=== PATIENT | female | born 1995 | race Caucasian/White ===

== ENCOUNTER 2020-08-03 04:13 | Inpatient (IN) ==
[2020-08-03] MEDS ORDERED: OXYTOCIN 30 UNITS/500 ML BAG IV PRN ×2 (04:31→09:13)
[2020-08-03] MEDS: LACTATED RINGER'S 1,000 ML IV PRN ×3 (04:38→08:23)
--- NOTE | 2020-08-03 04:40 | History & Physical Report ---
Date of Service August 03, 2020 Assessment & Plan (1) Normal labor: Admission and Anticipated Discharge Date Admission Date: IUP at 37+ weeks in active labor with SPROM COVID testing on admission requesting epidural analgesia anticipate vaginal History of Present Illness Primary Care Provider: MARCELLUS Schwartz Patient is a 25 yo white female EDC 08/18/20 who presents at 37+ weeks with SPROM at 0200 tonight. SHe has also had some bloody show & irregular contractions. She woke up with episodes of nausea vomiting & diarrhea along with the contractions. GBS -negative No COVID testing yet. otherwise has been uncomplicated Allergies Allergy/AdvReac Type Severity Reaction Status Date / Time No Known Allergies Allergy Verified 07/29/20 08:26 Home Medications Medication Instructions Recorded Confirmed Type prenat.vits,danielito,[id number] 1 tab PO DAILY 01/13/20 07/29/20 History ondansetron HCl 4 mg tablet 4 mg PO Q4H PRN #20 tab 04/28/20 07/29/20 Rx Patient History Medical History Asthma Encounter for anatomic survey History of chicken pox Marginal placenta previa Nausea and vomiting during Surgical History S/P wisdom tooth extraction Family History Mother Depression Sister Depression Father Hypertension Kidney stones Cancer Grandmother Breast cancer Social History Smoking Status: Never smoker Second Hand Exposure: No; Hx Alcohol Use: Yes Alcohol type Comment: rarely consumes Hx Substance Use: No Preferred Language: Yakut Communication Ability: Effective Visual Impairment: No Limitations Hearing Ability: Normal Beliefs That Will Affect Care: None marital status: Single marital status details: jean Jorgensen (32) [phone] Current Living Situation: Significant Other Current Living Situation Comment: Lives with jean, 2 dogs, cows, barn cat current occupational status: employed 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[employer] Feels Safe at Home: Yes Childhood Exposure to Second-Hand Smoke: No caffeine: No during the past year weight has: remained stable Dental Care, Regularly: Yes Physical Activity Frequency: 1-2 Times per Week Seatbelt Use: always Sunscreen Use: Yes Review of Systems All systems reviewed & are unremarkable except as noted in HPI & below Physical Exam Constitutional: WD/WN, vitals as above Respiratory: normal respiratory effort, lungs clear to auscultation Cardiovascular: RRR, no murmur, no edema Gastrointestinal (Abdomen): normal bowel sounds, soft, nontender, no hepatosplenomegaly Psychiatric: A+Ox3, euthymic affect Genitourinary: Manual OB Exam: + cervical dilation 5 cm, + cervical effacement 100%, + station -1 and + amniotic fluid clear and nitrazine positive OB Exam Monitor Tracing: + external FHT monitor used, + external uterine monitor used, + category I and + normal FHT variability Coding Level of Care Code None Diagnoses Normal labor O80; Z37.9
[2020-08-03] MEDS ORDERED: BUPIVACAINE 0.25% 30 ML VIAL ONE (04:46)
[2020-08-03] MEDS ORDERED: ePHEDrine sulfate 50 MG/ML AMP ONE (04:46)
[2020-08-03] MEDS ORDERED: SODIUM CHLORIDE 0.9% INJ 10 ML VIAL ONE (04:46)
[2020-08-03] MEDS ORDERED: fentaNYL citrate 100 MCG/2 ML VIAL ONE (04:47)
[2020-08-03] MEDS ORDERED: fentaNYL 2MCG/ML ROPIVACAINE 1.25MG/ML 100 ML BAG EPI ONE (04:47)
[2020-08-03 05:04] LABS: Hematocrit (blood only) 34.8 % (37-47); Hemoglobin 11.9 g/dL (12.0-16.0); Mean Corpuscular Hemoglobin 31.6 pg (25-34); Mean Corpuscular Hgb Conc 34.2 g/dL (32-36); Mean Corpuscular Volume 92.3 fL (80-100); Mean Platelet Volume 11.8 fL (7.4-10.4); Platelet Count 141 K/uL (130-400); RDW Coefficient of Variation 12.7 % (11.5-14.5); RDW Standard Deviation 42.4 fL (36.4-46.3); Red Blood Count 3.77 M/uL (4.2-5.4); White Blood Count 8.46 K/uL (4.8-10.8)
[2020-08-03] MEDS ORDERED: diphenhydrAMINE 50 MG/ML VIAL IV PRN (05:45)
[2020-08-03] MEDS ORDERED: NALOXONE HCL 0.4 MG/1 ML VIAL/CARP IV PRN (05:45)
[2020-08-03] MEDS ORDERED: fentaNYL 2MCG/ML ROPIVACAINE 1.25MG/ML 100 ML BAG EPI PRN (05:45)
[2020-08-03] MEDS ORDERED: NALOXONE HCL 1 MG in SODIUM CHLORIDE 0.9% 1000ML 1,000 ML IV PRN (05:45)
[2020-08-03] MEDS ORDERED: ePHEDrine sulfate 50 MG/ML AMP IV PRN (05:45)
[2020-08-03] MEDS ORDERED: ONDANSETRON INJ 2 MG/ML 2 ML VIAL IV PRN (05:45)
--- NOTE | 2020-08-03 05:48 | Anesthesiology Consultation ---
Date of Service August 03, 2020 Covid 19 negative on 08/03/20. Assessment & Plan (1) Encounter for pre-operative examination: Chart Review Chart Review: Patient NOT seen in Pre Admission Testing and Acceptable Risk for Labor Epidural Consults Requested none ASA ASA2 Proposed Anesthesia Anesthesia Type: Labor Epidural and CSE Risk / Benefits Reviewed With: PT / POA / Parent / Guardian, Accepts Plan and Informed Consent Obtained History Height/Weight Height: 5 ft 10 in Weight: 84.368 kg Allergies Allergy/AdvReac Type Severity Reaction Status Date / Time No Known Allergies Allergy Verified 07/29/20 08:26 Medications Home Medications Medication Instructions Recorded Confirmed Last Taken prenat.vits,danielito,[id number] 1 tab PO DAILY 01/13/20 07/29/20 Unknown ondansetron HCl 4 mg tablet 4 mg PO Q4H PRN #20 tab 04/28/20 07/29/20 Unknown Active Medications Generic Name Dose Route Start Last Admin Trade Name Freq PRN Reason Stop Dose Admin Lactated Ringer's 1,000 mls @ 125 mls/hr 08/03/20 04:31 08/03/20 05:46 Lr IV 08/05/20 04:30 999 mls/hr .Q8H PRN Administration L&D Protocol Protocol NPO Date Last Intake of Fluids: 08/02/20 Time Last Intake of Fluids: 19:00 Date Last Intake of Solids: 08/02/20 Time Last Intake of Solids: 19:00 Past Medical History Medical History Asthma Encounter for anatomic survey History of chicken pox Marginal placenta previa Nausea and vomiting during Exercise / Class Metabolic Activity II 4-5 Yardwork/Stairs/Walk up hill Past Family History Family History Mother Depression Sister Depression Father Hypertension Kidney stones Cancer Grandmother Breast cancer Past Surgical History Surgical History S/P wisdom tooth extraction Past Anesthesia History No Hx of Anesthesia Complications and No Family Hx of Anesthesia Complications History of PONV No Hx of PONV and No Hx of Motion Sickness Social History Smoking Status: Never smoker Do You Dip or Chew Tobacco: No Hx Alcohol Use: No Hx Substance Use: No substance use type: does not use Review of Systems no chest pain or sob Physical Exam Vital Signs Last Vital Signs Temp 36.7 C 08/03/20 04:47 Pulse 79 08/03/20 05:45 Resp 22 08/03/20 04:47 BP 146/82 H 08/03/20 05:28 Pulse Ox 99 08/03/20 05:45 ENMT Mouth: no TMJ abnormality Thyromental Distance: > or= 3.5 Finger Breadths Mallampati Class: II Neck normal visual inspection Respiratory normal respiratory effort Auscultation: lungs clear to auscultation bilaterally Cardiovascular Rate/Rhythm: regular rate and regular rhythm Musculoskeletal Spine: normal cervical ROM Neurologic moves all extremities Psychiatric Orientation: alert and oriented x 3 Testing Laboratory Results 08/03/20 04:53
--- NOTE | 2020-08-03 09:00 | Delivery Summary ---
Vaginal Delivery Summary Date of Service August 03, 2020 Vaginal Delivery Summary Spontaneous vaginal delivery patient had ruptured membranes and presented for Dr. Chan the night before in active labor received an epidural group B strep - 38 weeks Covid negative she pushed for less than half an hour delivering a baby in occiput anterior position fluid was clear no nuchal cord gentle traction no excessive force live vigorous male cord clamped and cut cord gases obtained cord blood obtained placenta removed with gentle traction IV Pitocin started second-degree tear repaired with 3-0 Vicryl estimated blood loss 250 mL sponge and instrument counts correct [facility] Vaginal Delivery Charge Vaginal Delivery Codes: 56053 global code for the antepartum, delivery, and post- Procedure Anesthesia type: Epidural
[2020-08-03] MEDS ORDERED: HYDROCORTISONE ACETATE 25 MG SUPP PR PRN (09:13)
[2020-08-03] MEDS ORDERED: oxyCODONE/ACETAMINOPHEN 5mg/325mg TAB PO PRN (09:13)
[2020-08-03] MEDS ORDERED: ACETAMINOPHEN 325 MG TAB PO PRN (09:13)
[2020-08-03] MEDS ORDERED: SUPERCREAM 0.870% 15 GM JAR EXT PRN (09:13)
[2020-08-03] MEDS ORDERED: bisacodyL 10 MG SUPP PR PRN (09:13)
[2020-08-03] MEDS ORDERED: NON-FORMULARY MEDICATION (Prenat.Vits,Cal,Min-Iron-Folic tablet) PO SCH (09:13)
[2020-08-03 09:28] LABS: CO2 Cord Arterial Blood 62 mmHg (39.1-73.5); HCO3 Cord Arterial Blood 25 mmol/L (19.7-28.5); PO2 Cord Arterial Blood 16 mmHg (4.1-31.7); pH Cord Arterial Blood 7.23 (7.1-7.38)
[2020-08-03 09:32] LABS: Cord Venous Blood HCO3 24 mmol/L (18.4-26.8); Cord Venous Blood PCO2 53 mmHg (30.4-57.2); Cord Venous Blood PO2 21 mmHg (14.1-43.3); Cord Venous Blood pH 7.27 (7.20-7.44)
[2020-08-03] MEDS ORDERED: DIPHTHERIA/TETANUS/PERTUSSIS 0.5 ML SYR/VIAL IM ONE (09:35)
[2020-08-03 09:38] LABS: O2 Saturation Cord Venous Bld < 60.0 % (<68); Oxygen Sat Cord Arterial Blood < 60.0 % (<60)
[2020-08-03] MEDS: IBUPROFEN 600 MG TAB PO PRN ×2 (10:09→23:08)
[2020-08-03] MEDS: BENZOCAINE 20% AER SPR 82.5 GM CAN EXT PRN (10:10)
--- NOTE | 2020-08-03 10:11 | Anesthesia Procedure Note ---
Date of Service August 03, 2020 Anesthesia Post Epidural Note Vital Signs Vital Signs: Temp Pulse Resp BP Pulse Ox 37.0 C 83 18 157/93 H 98 08/03/20 07:05 08/03/20 09:59 08/03/20 07:30 08/03/20 09:59 08/03/20 08:45 Notes Mental Status: alert / awake / arousable and participated in evaluation Patient Amnestic to Procedure: No Nausea / Vomiting: adequately controlled Pain: adequately controlled Airway Patency, RR, SpO2: stable & adequate BP & HR: stable & adequate Hydration State: stable & adequate Neuraxial Anesthesia: was administered and sensory block is resolving Anesthetic Complications: no major complications apparent and Pt Satisfied with anesthetic care Epidural: Removed without complications and With tip intact
--- NOTE | 2020-08-03 14:54 | Obstetrical Progress Note ---
Date of Service August 03, 2020 Assessment & Plan Admission and Anticipated Discharge Date Admission Date: August 03, 2020 Subjective Patient's blood pressures have been elevated postdelivery she did have some initially during labor but she was in pain at that time the patient is completely asymptomatic with no headache or right upper quadrant pain no visual problems will monitor pressures closely if they sustained higher start labetalol Results & Data ([facility]) Vital Signs (Past 12 Hours) Vital Signs Temp Pulse Pulse Resp BP BP Pulse Ox 08/03/20 14:10 98.2 F 92 H 18 153/94 H 08/03/20 14:04 98.4 F 18 08/03/20 12:49 110 H 147/99 H 08/03/20 11:44 80 152/90 H 08/03/20 11:29 75 139/87 08/03/20 10:48 85 160/86 H 08/03/20 10:45 87 154/85 H 08/03/20 10:44 18 08/03/20 10:43 81 161/103 H 08/03/20 10:29 82 150/89 H 08/03/20 10:14 75 164/83 H 08/03/20 09:59 83 18 157/93 H 08/03/20 09:44 81 18 155/91 H 08/03/20 09:28 85 18 133/85 08/03/20 09:13 105 H 18 132/82 08/03/20 08:58 105 H 136/78 08/03/20 08:49 95 H 131/69 08/03/20 08:45 106 H 98 08/03/20 08:43 122 H 144/77 H 08/03/20 08:40 94 H 97 08/03/20 08:35 129 H 98 08/03/20 08:30 128 H 18 99 08/03/20 08:29 96 H 138/75 08/03/20 08:25 112 H 99 08/03/20 08:20 111 H 100 08/03/20 08:15 95 H 100 08/03/20 08:13 78 144/81 H 08/03/20 08:10 99 H 100 08/03/20 08:05 83 100 08/03/20 08:00 82 18 100 08/03/20 07:58 90 137/85 08/03/20 07:55 93 H 100 08/03/20 07:50 76 100 08/03/20 07:45 82 141/84 H 100 08/03/20 07:40 84 100 08/03/20 07:35 76 99 08/03/20 07:30 72 18 100 08/03/20 07:29 68 125/70 08/03/20 07:25 69 99 08/03/20 07:20 74 100 08/03/20 07:15 81 99 08/03/20 07:14 81 153/89 H 08/03/20 07:10 84 100 08/03/20 07:05 98.6 F 102 H 18 100 08/03/20 07:00 85 100 08/03/20 06:58 76 158/87 H 08/03/20 06:55 75 100 08/03/20 06:50 84 169/88 H 100 08/03/20 06:49 72 163/88 H 08/03/20 06:45 76 100 08/03/20 06:40 76 100 08/03/20 06:35 85 100 08/03/20 06:30 77 100 08/03/20 06:28 72 140/80 08/03/20 06:25 76 100 08/03/20 06:20 75 100 08/03/20 06:15 82 100 08/03/20 06:13 81 145/85 H 08/03/20 06:11 82 146/83 H 08/03/20 06:10 95 H 100 08/03/20 06:09 76 146/83 H 08/03/20 06:07 80 143/79 H 08/03/20 06:05 88 152/78 H 100 08/03/20 06:03 75 138/65 08/03/20 06:02 82 143/72 H 08/03/20 06:00 81 99 08/03/20 05:56 86 149/89 H 08/03/20 05:55 96 H 158/99 H 98 08/03/20 05:54 102 H 154/80 H 08/03/20 05:50 77 100 08/03/20 05:45 79 99 08/03/20 05:40 83 100 08/03/20 05:35 82 100 08/03/20 05:30 87 99 08/03/20 05:28 85 146/82 H 08/03/20 05:25 86 99 08/03/20 05:20 100 H 99 08/03/20 05:15 84 100 08/03/20 05:10 86 100 08/03/20 04:53 90 167/98 H 08/03/20 04:47 98.1 F 22 PG Care Time/CCT Total # of Minutes Spent Total Time Spent with Patient: Total time spent is greater than 50% in coordination of care (as documented) at patient's floor/unit and/or counseling patient: Coding Level of Care Code None
[2020-08-03] MEDS: DOCUSATE SODIUM 100 MG CAP PO SCH (20:11)
[2020-08-04 07:02] LABS: Hematocrit (blood only) 30.9 % (37-47); Hemoglobin 10.5 g/dL (12.0-16.0); Mean Corpuscular Hemoglobin 31.6 pg (25-34); Mean Corpuscular Volume 93.1 fL (80-100); Mean Platelet Volume 11.2 fL (7.4-10.4); Platelet Count 139 K/uL (130-400); RDW Coefficient of Variation 12.9 % (11.5-14.5); RDW Standard Deviation 43.5 fL (36.4-46.3); Red Blood Count 3.32 M/uL (4.2-5.4); White Blood Count 9.32 K/uL (4.8-10.8)
--- NOTE | 2020-08-04 07:08 | Obstetrical Progress Note ---
Date of Service August 04, 2020 day #1 the patient is doing well she has no headache no epigastric pain no visual problems she feels well she has minimal bleeding and pain she is breast-feeding she has no depression Assessment & Plan (1) state: Patient's blood pressures have been somewhat labile although they have come down slowly on their own her most recent blood pressure was 137/88 I have discussed the role of medication with the patient she will stay today in the hospital we will observe her blood pressures for elevation if the return to a highly elevated state would consider initiation of labetalol Physical Exam Constitutional WD/WN, vitals as above Respiratory normal respiratory effort, lungs clear to auscultation Gastrointestinal (Abdomen) normal bowel sounds, soft, nontender, no hepatosplenomegaly Results & Data ([facility]) Vital Signs (Past 12 Hours) Vital Signs Temp Pulse Resp BP Pulse Ox 08/04/20 03:05 98.1 F 84 14 137/88 08/03/20 23:05 98.2 F 84 16 155/100 H 08/03/20 19:35 98.6 F 80 16 154/98 H 99
[2020-08-04] MEDS: PRENATAL VITAMIN 1 TAB PO SCH (07:46)
[2020-08-04] MEDS: IBUPROFEN 600 MG TAB PO PRN (07:46)
[2020-08-04] MEDS: DOCUSATE SODIUM 100 MG CAP PO SCH ×2 (07:46→20:24)
[2020-08-04] MEDS ORDERED: bisacodyL 5 MG TABEC PO SCH (20:00)
--- NOTE | 2020-08-05 06:44 | Obstetrical Progress Note ---
Date of Service <Michel Roberts MD - Last Filed: 08/05/20 07:43> August 05, 2020 Assessment & Plan <Michel Roberts MD - Last Filed: 08/05/20 07:43> (1) state: A/P: Elie Jorgensen is a 25 y/o female on PPD#2 following at 37+6 weeks. * Patient feels well today; eating well, voiding well, ambulating well * Pain well-controlled with ibuprofen 600mg q4h prn * Routine postcesarean care: OOB, ambulation, diet progression as tolerated * After discharge, will have six-week follow-up with Dr. Peralta Subjective <Michel Roberts MD - Last Filed: 08/05/20 07:43> Ambulation: ambulating normally Voiding: no voiding problems Passing Gas:: Yes Diet Tolerance:: regular diet Lochia:: Janie Jorgensen is a 25 y/o female on PPD#2 following at 37+6 weeks. She reports feeling well overall this morning. Minimal abdominal cramping and 1/10 pain well managed on analgesics. Voiding well. Tolerating meals overnight without difficulty. Patient has been able to ambulate some. Has persistent lochia with good improvement this morning. Currently . Constitutional: no fever and no chills Respiratory: no cough and no dyspnea Cardiovascular: no chest pain, no palpitations and no edema Gastrointestinal: no nausea and no vomiting Genitourinary (female): no dysuria Physical Exam <Michel Roberts MD - Last Filed: 08/05/20 07:43> General: alert, oriented, no acute distress Cardiac: regular rate and rhythm, no murmurs appreciated Respiratory: lungs clear to auscultation bilaterally a/p, no wheezes/rales/rho nchi, no increased work of breathing, symmetrical chest rise, no respiratory distress Abdomen: soft, minimally tender, nondistended, bowel sounds present Uterus: uterine fundus firm, palpable 2 cm below umbilicus Lower extremities: no lower extremity edema or swelling, no deep calf pain, Heber's negative bilaterally Constitutional no acute distress Respiratory normal respiratory effort, lungs clear to auscultation Cardiovascular RRR, no murmur, no edema Gastrointestinal (Abdomen) Inspection/Auscultation: normal bowel sounds Percussion/Palpation: abdomen soft Results & Data ([facility]) <Michel Roberts MD - Last Filed: 08/05/20 07:43> Vital Signs (Past 12 Hours) Vital Signs Temp Pulse Resp BP 08/04/20 23:30 37.2 C 91 H 16 141/100 H 08/04/20 19:05 36.7 C 94 H 16 132/87 <Tomasa Cedeno MD, FACOG - Last Filed: 08/05/20 08:33> Co-Signing Physician Notes Resident Physician Supervision Note: I was present with Dr. Roberts during the history and exam. I discussed the case with the resident and agree with the findings and plan as documented in the note. Any exceptions or clarifications are listed here: pt doing well but bps labile, eating, drinking, voiding and bleeding decreasing. ff 2 down, bottle feeding, ready for discharge, last bps documented are from overnight. if more stable this am, can consider d/c but needs 1wk bp check in office. instructions reviewed. if bps elevated may need meds. Addendum: am bp are elevated, start labetalol this am, likely ok to d/c later today if bps respond, md specifications checker aware. pt aware. will still need bp check one wk. Documented By: Tomasa Cedeno MD, FACOG Resident Activity Tracking <Michel Roberts MD - Last Filed: 08/05/20 07:43> Resident Involvement: Resident Care Provided Care Provided: OB Delivery
[2020-08-05 07:07] LABS: Hematocrit (blood only) 32.4 % (37-47); Hemoglobin 10.7 g/dL (12.0-16.0)
[2020-08-05] MEDS: DOCUSATE SODIUM 100 MG CAP PO SCH (08:39)
[2020-08-05] MEDS: PRENATAL VITAMIN 1 TAB PO SCH (08:39)
[2020-08-05] MEDS: BENZOCAINE 20% AER SPR 82.5 GM CAN EXT PRN (08:39)
[2020-08-05] MEDS ORDERED: LABETALOL HCL 100 MG TAB PO SCH (09:00)
== END 2020-08-05 14:21 | disposition home or self-care (01) | DRG 807 ==
LOC: OPB 04:13 → 4S1 04:17 → 4S2 13:50

== ENCOUNTER 2024-01-18 06:33 | Inpatient (IN) ==
[2024-01-18] MEDS ORDERED: LIDOCAINE 1% LOCAL 20 ML VIAL INFIL PRN (07:01)
[2024-01-18] MEDS: LACTATED RINGER'S 1,000 ML IV PRN (07:19)
--- NOTE | 2024-01-18 07:19 | History & Physical Report ---
Date of Service January 18, 2024 Assessment & Plan (1) Encounter for supervision of normal in multigravida: Plan: Elie is a 28-year-old G2, P1 currently at 39 weeks 0 days gestational age in active labor. Category 1 tracing, GBS negative, vitals within normal limits (2) Normal labor: History of Present Illness Primary Care Provider: MARCELLUS Schwartz Elie is a 28-year-old G2, P1 currently at 39 weeks 0 days gestational age presents in active labor. has been uncomplicated to date. OB Labs: Blood Type O Positive 06/17/23 Antibody Screen NEGATIVE 06/17/23 Hemoglobin 11.5 g/dl (12.0-16.0) L 11/05/23 Hematocrit 33.0 % (37.0-47.0) L 11/05/23 Mean Corpuscular Volume 88.9 fL (80.0-100.0) 06/17/23 Platelet Count 246 K/uL (130-400) 06/17/23 Rubella IgG Antibody Immune (Immune) 06/17/23 Rapid Plasma Reagin Nonreactive (Nonreactive) 06/17/23 Hepatitis B Surface Antigen Neg (Neg) 01/20/20 Hepatitis B Surface Antigen. NON-REACTIVE (NON-REACTIVE) 06/17/23 Hepatitis C Antibody (EIA) NON-REACTIVE (NON-REACTIVE) 06/17/23 HIV (1&2) Ab and P24 Ag, 4th Gener Neg (Neg) 01/20/20 HIV (1&2) Ag and Ab Confirmation NON-REACTIVE (NON-REACTIVE) 06/17/23 Glucose 1 Hour 50 gm Load 104 mg/dl (70-130) 11/05/23 Maternal Serum Alpha Fetoprotein 53.2 ng/mL 03/03/20 OB Optional Labs: Chlamydia trachomatis RNA Not Detected (NotDetected) 06/17/23 Neisseria gonorrhoeae RNA Not Detected (NotDetected) 06/17/23 Thyroid Stimulating Hormone (TSH) 3.802 uIu/ml (0.300-4.500) 12/03/22 Alpha Fetoprotein Triple Screen SEE NOTE 03/03/20 Labs Reviewed: (-) CF/SMA last --[place] 14-negative--mln cfdna-low risk--mln Allergies Allergy/AdvReac Type Severity Reaction Status Date / Time No Known Allergies Allergy Verified 01/14/24 13:25 Home Medications Medication Instructions Recorded Confirmed Type 21-iron fu-folic acid PO 06/10/23 01/14/24 History [ Complete] Patient History Medical History Marginal placenta previa History of chicken pox Asthma Surgical History S/P wisdom tooth extraction Family History Mother Depression Sister Depression Father Hypertension Kidney stones Cancer Grandmother Breast cancer Denies family history of Ovarian cancer Prostate cancer Myocardial infarction Colorectal cancer Social History Smoking Status: Never smoker Second Hand Exposure: No; Do You Dip or Chew Tobacco: No; Hx Alcohol Use: No Hx Substance Use: No Preferred Language: Pashto Communication Ability: Effective Visual Impairment: No Limitations Hearing Ability: Normal Bottling Line Attendant Required: No Beliefs That Will Affect Care: None marital status: marital status details: Stu Jorgensen (35) [phone] Current Living Situation: Spouse Current Living Situation Comment: Lives with spouse, child, dogs current occupational status: employed 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[employer] Feels Safe at Home: Yes Childhood Exposure to Second-Hand Smoke: No Diet: regular Diet Comment: Regular caffeine: Yes during the past year weight has: remained stable Dental Care, Regularly: Yes Physical Activity Frequency: Daily Seatbelt Use: always Sunscreen Use: Yes Assistive Devices: None Physical Exam Genitourinary: Manual OB Exam: + cervical dilation 6 cm OB Exam Monitor Tracing: + external FHT monitor used, + external uterine monitor used and + category I; no normal FHT variability, no early decelerations present, no late decelerations present and no variable decelerations Exam per nurse Results & Data Vital Signs (Past 12 Hours) Vital Signs Pulse BP 01/18/24 06:53 85 138/84 Coding Level of Care Code None Diagnoses Encounter for supervision of normal in multigravida Z34.80 Normal labor O80; Z37.9
[2024-01-18 07:51] LABS: Hematocrit (blood only) 33.5 % (37.0-47.0); Hemoglobin 11.3 g/dl (12.0-16.0); Mean Corpuscular Hemoglobin 29.9 pg (25.0-34.0); Mean Corpuscular Hgb Conc 33.7 g/dL (32.0-36.0); Mean Corpuscular Volume 88.6 fL (80.0-100.0); Mean Platelet Volume 10.1 fL (9.4-12.4); Platelet Count 164 K/uL (130-400); RDW Coefficient of Variation 12.3 % (11.5-14.5); RDW Standard Deviation 39.6 fL (36.4-46.3); Red Blood Count 3.78 M/uL (4.20-5.40); White Blood Count 7.46 K/ul (4.8-10.8)
--- NOTE | 2024-01-18 07:55 | Anesthesiology Consultation ---
Date of Service January 18, 2024 Assessment & Plan (1) Encounter for pre-operative examination: Chart Review Chart Review: Acceptable Risk for Labor Epidural History Height/Weight Height: 5 ft 10 in Weight: 82.554 kg Allergies Allergy/AdvReac Type Severity Reaction Status Date / Time No Known Allergies Allergy Verified 01/18/24 07:19 Medications Home Medications Medication Instructions Recorded Confirmed Last Taken 21-iron fu-folic acid PO 06/10/23 01/14/24 Unknown [ Complete] Active Medications Generic Name Dose Route Start Last Admin Trade Name Freq PRN Reason Stop Dose Admin Lactated Ringer's 1,000 mls @ 125 mls/hr 01/18/24 07:01 01/18/24 07:19 Lr IV 01/20/24 07:00 125 mls/hr .Q8H PRN Administration L&D Protocol Protocol Past Medical History Medical History Marginal placenta previa History of chicken pox Past Family History Family History Mother Depression Sister Depression Father Hypertension Kidney stones Cancer Grandmother Breast cancer Denies family history of Ovarian cancer Prostate cancer Myocardial infarction Colorectal cancer Past Surgical History Surgical History S/P wisdom tooth extraction Social History Smoking Status: Never smoker Do You Dip or Chew Tobacco: No Hx Alcohol Use: No Hx Substance Use: No substance use type: does not use Physical Exam Vital Signs Last Vital Signs Temp 36.7 C 01/18/24 07:00 Pulse 85 01/18/24 07:39 Resp 18 01/18/24 07:00 BP 138/84 01/18/24 06:53 Pulse Ox 100 01/18/24 07:39 Testing Laboratory Results 01/18/24 07:28
[2024-01-18] MEDS: fentaNYL citrate PF 100 MCG/2 ML VIAL ONE (08:22)
[2024-01-18] MEDS: BUPIVACAINE 0.25% PF 30 ML VIAL ONE (08:22)
[2024-01-18] MEDS: LIDOCAINE 2%/EPINEPHRINE 1:200,000 20 ML PF ONE (08:23)
[2024-01-18] MEDS: fentANYL 2 MCG/ML BUPIVacaine 0.125%-NSS 100ML BAG ONE (08:24)
[2024-01-18] MEDS ORDERED: LIDOCAINE 2% MPF LOCAL 5 ML VIAL EPI PRN (08:26)
[2024-01-18] MEDS ORDERED: NALOXONE HCL 1 MG in SODIUM CHLORIDE 0.9% 1,000 ML IV PRN (08:26)
[2024-01-18] MEDS ORDERED: fentANYL 2 MCG/ML BUPIVacaine 0.125%-NSS 100ML BAG EPI PRN (08:26)
[2024-01-18] MEDS ORDERED: SODIUM CHLORIDE 0.9% PF INJ 10 ML VIAL EPI PRN (08:26)
[2024-01-18] MEDS ORDERED: ONDANSETRON INJ 2 MG/ML 2 ML VIAL IV PRN (08:26)
[2024-01-18] MEDS ORDERED: ROPIVACAINE 0.5% PF 5 MG/ML 20 ML VIAL EPI PRN (08:26)
[2024-01-18] MEDS ORDERED: ePHEDrine sulfate 50 MG/ML AMP IV PRN (08:26)
[2024-01-18] MEDS ORDERED: fentaNYL citrate PF 100 MCG/2 ML VIAL EPI PRN (08:26)
[2024-01-18] MEDS ORDERED: NALOXONE HCL 0.4 MG/1 ML VIAL/CARP IV PRN (08:26)
[2024-01-18] MEDS ORDERED: BUPIVACAINE 0.25% PF 30 ML VIAL EPI PRN (08:26)
[2024-01-18] MEDS: SODIUM CHLORIDE 0.9% PF INJ 10 ML VIAL ONE (08:27)
[2024-01-18] MEDS: BUPIVACAINE 0.25% PF 30 ML VIAL EPI STA (08:54)
[2024-01-18] MEDS: LIDOCAINE 2%/EPINEPHRINE 1:200,000 20 ML PF EPI STA (08:55)
[2024-01-18] MEDS: fentaNYL citrate PF 100 MCG/2 ML VIAL EPI STA (08:55)
[2024-01-18] MEDS: SODIUM CHLORIDE 0.9% PF INJ 10 ML VIAL EPI STA (08:55)
[2024-01-18] MEDS: OXYTOCIN 30 UNITS/NSS 30 UNITS/500 ML BAG IV PRN (09:53)
--- NOTE | 2024-01-18 10:04 | Delivery Summary ---
Vaginal Delivery Summary Date of Service January 18, 2024 Vaginal Delivery Summary DIAGNOSES: 1. Torres intrauterine at 39w gestation. 2. Spontaneous onset of labor. 3. Group B Streptococcus Neg. PROCEDURE: Spontaneous vaginal delivery and repair of second degreee laceration . SURGEON: Melissa Duran MD. INTELLIGENCE GROUP SUPERVISOR: None. ESTIMATED BLOOD LOSS: 100 mL. COMPLICATIONS: None. PLACENTA: Spontaneous and intact with a 3-vessel cord. DISPOSITION: Stable to labor and delivery. DESCRIPTION: The patient pushed well and brought the head to in OA position. The infant's head was allowed to deliver with contraction force and no further active pushing, with the perineum protected during this time. There was no nuchal cord. The left shoulder was anterior. The shoulders and body delivered without any difficulty, and the infant was placed on the maternal abdomen. It was vigorous and moving all extremities, and making respiratory efforts. The cord was doubly clamped by the MD and then cut by the FOB. The placenta delivered spontaneously and was noted to be intact and with a 3VC. The cervix, vagina and perineum were examined and were found to have a second-degree laceration repaired in the usual manner with vicryl suture. The fundus was firm and lochia minimal immediately after delivery. [facility] Vaginal Delivery Charge Vaginal Delivery Codes: 26902 global code for the antepartum, delivery, and post-
[2024-01-18] MEDS: ePHEDrine sulfate 50 MG/ML AMP ONE (10:05)
[2024-01-18] MEDS ORDERED: oxyCODONE/ACETAMINOPHEN 5mg/325mg TAB PO PRN (10:16)
[2024-01-18] MEDS ORDERED: HYDROCORTISONE ACETATE 25 MG SUPP PR PRN (10:16)
[2024-01-18] MEDS ORDERED: bisacodyL 10 MG SUPP PR PRN (10:16)
[2024-01-18] MEDS ORDERED: ACETAMINOPHEN 325 MG TAB PO PRN (10:16)
--- NOTE | 2024-01-18 11:25 | Anesthesia Procedure Note ---
Date of Service January 18, 2024 Anesthesia Post Epidural Note Vital Signs Vital Signs: Temp Pulse Resp BP Pulse Ox 37.1 C 75 18 120/75 84 L 01/18/24 10:58 01/18/24 11:13 01/18/24 10:58 01/18/24 11:13 01/18/24 09:42 Notes Mental Status: alert / awake / arousable and participated in evaluation Nausea / Vomiting: adequately controlled Pain: adequately controlled Airway Patency, RR, SpO2: stable & adequate BP & HR: stable & adequate Hydration State: stable & adequate Neuraxial Anesthesia: was administered and sensory block is resolving Anesthetic Complications: no major complications apparent Epidural: Removed without complications and With tip intact
[2024-01-18] MEDS: LACTATED RINGER'S 1,000 ML IV SCH (11:37)
[2024-01-18] MEDS: DIPHTHER/TETAN/PERTUS Vaccine (Tdap, Adol/Adult) 0.5mL IM ONE (11:37)
[2024-01-18] MEDS: BENZOCAINE 20% SPRY 85 APPLN/85 GM CAN EXT PRN (20:08)
[2024-01-18] MEDS: IBUPROFEN 600 MG TAB PO PRN (20:08)
[2024-01-18] MEDS: DOCUSATE SODIUM 100 MG CAP PO SCH (20:08)
[2024-01-19 06:47] LABS: Hematocrit (blood only) 32.5 % (37.0-47.0); Hemoglobin 10.9 g/dl (12.0-16.0); Mean Corpuscular Hemoglobin 30.2 pg (25.0-34.0); Mean Corpuscular Hgb Conc 33.5 g/dL (32.0-36.0); Mean Platelet Volume 9.7 fL (9.4-12.4); Platelet Count 139 K/uL (130-400); RDW Coefficient of Variation 12.3 % (11.5-14.5); RDW Standard Deviation 39.8 fL (36.4-46.3); Red Blood Count 3.61 M/uL (4.20-5.40); White Blood Count 7.54 K/ul (4.8-10.8)
[2024-01-19] MEDS: PRENATAL VITAMIN 1 TAB PO SCH (08:44)
--- NOTE | 2024-01-19 09:12 | Obstetrical Progress Note ---
Date of Service January 19, 2024 Assessment & Plan (1) state: Plan and desires D/C home, will allow, instructions reviewed. Subjective Ambulation: ambulating normally Voiding: no voiding problems Passing Gas:: Yes Diet Tolerance:: regular diet Lochia:: Small Feeding Type:: breast feeding Physical Exam Constitutional WD/WN, vitals as above Eyes PERRL, conjunctivae normal, anicteric sclerae Neck normal visual inspection Respiratory normal respiratory effort and able to speak in complete sentences; no respiratory distress and no labored breathing Cardiovascular Rate/Rhythm: regular rate and regular rhythm Extremities: no edema Chest (Breasts) Chest: normal inspection of chest Gastrointestinal (Abdomen) Inspection/Auscultation: abdomen normal to inspection Soft, postgravid Psychiatric A+Ox3, euthymic affect Genitourinary OB Exam Abdomen: + fundal height Fundus: + firm and + relation to umbilicus (fundus just below umbilicus); not tender Results & Data Vital Signs (Past 12 Hours) Vital Signs Temp Pulse Pulse Resp BP Pulse Ox O2 Del Method 01/19/24 03:20 98.2 F 80 16 123/83 99 Room Air 01/18/24 23:13 98.1 F 64 16 137/84 97 Room Air
[2024-01-19] MEDS ORDERED: bisacodyL 5 MG TABEC PO SCH (20:00)
== END 2024-01-19 14:00 | disposition home or self-care (01) | DRG 807 ==
LOC: OPB 06:33 → 4S1 06:41 → 4E2 13:09